=== PATIENT | female | born 1975 | race Caucasian/White ===

== ENCOUNTER 2016-06-20 13:35 | Day surgery (SDC) | payer OTHER ==
[~2016-06-20] VITALS: Ht 152.4 cm; Wt 117.5 kg
[~2016-06-20 13:35] MED LIST: GABA800T2 PO; IBUP400T22 PO; Sodium Chloride LOK Flush 10 mL Syringe IV PRN; fentaNYL-PF 50 mCg/mL 2 mL Inj IVPUSH PRN
[2016-06-20 14:03] VITALS: BP 136/77; PULSE 67; RESP 19; O2SAT 100
[2016-06-20] MEDS ORDERED: LEVO1TBD6 PO (14:11)
[2016-06-20] MEDS ORDERED: NORG1TAB16 PO (14:11)
[2016-06-20] MEDS ORDERED: 0.9% Sodium Chloride 1,000 ML IV ONE (14:31)
[2016-06-20] MEDS ORDERED: 0.9% Sodium Chloride 1,000 ML ONE (14:44)
--- NOTE | 2016-06-20 15:27 | PCM.ENDEGD ---
EGD Date of Service: Jun 20, 2016 Physician Davis Carvajal MD Pre Procedure Diagnosis: Abdominal pain Post Procedure Dx & Findings: Esophagitis Procedure Esophagogastroduodenoscopy PROCEDURE IN DETAIL: After sedation, Olympus video endoscope was inserted patient's mouth and was advanced through the efferent and afferent loops of the small bowel. The Z line was at 35 cm. 2 spot appeared irritated and one spot showed small erosion. These were biopsied using cold forceps. The anastomosis site appeared widely patent without any inflammation ulcers. The stomach remnant appeared normal without any ulcers masses or erosions. Attempted to retroflex but due to the small stomach size, unsuccessful. We advanced to the efferent and afferent loops. The afferenr loop appears to have relatively short blind pouch. Efferent and afferent loops showed a normal villous structures with normal appearing folds. Impression Esophageal inflammation and erosion which were biopsied Recommendation Avoid biopsy report Avoid NSAIDs Follow-up in GI clinic Continue PPI Presedation Assessment Risks and Benefits Informed consent was obtained from the patient after all risks and benefits including but not limited to drug reaction, infection, pain, bleeding, perforation, as well as alternatives were discussed. Patient monitoring Continuous pulse oximetry, cardiac monitoring, blood pressure monitoring, IV access, and oxygen at 2L per nasal cannula. Periprocedural Fentanyl: Fentanyl 150mcg Incrementally Midazolam: Midazolam 7mg Incrementally Diphenhydramine: Diphenhydramine 25 mg IV Complications There were no periprocedural complications identified. Post Procedure Plan Post Procedure Recommendations 1. Restrict activities today. 2. Resume normal activities in the morning. 3. Resume medications. 4. GERD behavioral modification: - Avoid fatty, acidic, spicy, large meals - Do not lie down after meals - Do not eat or drink anything for at least 2 1/2 hours before going to bed at night - Discontinue tobacco and alcohol - Decrease or avoid caffeine - Avoid chocolate and mints - Decrease weight - Avoid aspirin and non steroidal anti-inflammatory agents (NSAID) such as Aleve, Advil, Mobic, Naproxen, Ibuprofen, etc 5. Add proton pump inhibitor. Take 30 minutes before 1st meal of the day. 6. Patient informed of normal post procedure side effects as bloating, drowsiness, blood streaking in the stool 7. If gastric biopsy reveal H.pylori, continue with appropriate treatment 8. If small bowel biopsy reveals celiac, continue with appropriate treatment 9. Please don't hesitate to call me with any questions Davis Carvajal MD Jun 20, 2016 15:27
--- NOTE | 2016-06-20 15:44 | PCM.ENDCOL ---
Colonoscopy Date of Service: Jun 20, 2016 Physician Davis Carvajal MD Pre Procedure Diagnosis: Change in bowel patterns Post Procedure Dx & Findings: Hemorrhoids Procedure Colonoscopy Prep adequate Withdrawal 8 minutes PROCEDURE IN DETAIL: After unremarkable rectal examination Olympus video colonoscope was inserted patient's anal canal and was then stuck cecum. Landmarks are identified including the ileocecal valve and appendiceal orifice. Scope was withdrawn systematically. The mucosa of the cecum, ascending, transverse, descending, sigmoid, rectal mucosa lined with whitish, pink, smooth, glistening, normal-appearing mucosa, normal fine branching, underlying vascularity, normal haustra. The patient tolerated procedure and was transported to observation area. In the rectum retroflexion was done which showed hemorrhoids. Anal canal was inspected carefully the way out and mild hemorrhoids noted. Impression Hemorrhoids Father with colon cancer Recommendation Repeat colonoscopy in 5 years. Presedation Assessment Risks and Benefits Informed consent was obtained from the patient after all risks and benefits including but not limited to drug reaction, infection, pain, bleeding, perforation, as well as alternatives were discussed. Patient monitoring Continuous pulse oximetry, cardiac monitoring, blood pressure monitoring, IV access, and oxygen at 2L per nasal cannula. Periprocedural Fentanyl: Fentanyl 50mcg Incrementally Midazolam: Midazolam 2mg Incrementally Complications There were no periprocedural complications identified. Post Procedure Plan Post Procedure Recommendations 1. Restrict activities today. 2. Resume normal activities in the morning. 3. Resume medications. 4. Patient informed of normal post procedure side effects as bloating, drowsiness, blood streaking in the stool. 5. average risk CRCS. If colon polyps come back as: -Hyperplastic- can repeat colonoscopy in 10 years -Tubular adenoma- repeat colonoscopy in 5 years -Tubulovillous/villous adenoma- repeat colonoscopy in 3 years -If any dysplasia- return to clinic as soon as possible 6. Please don't hesitate to call me with any questions. Davis Carvajal MD Jun 20, 2016 15:44
[2016-06-20 15:50] VITALS: BP 114/63; PULSE 62; RESP 14; O2SAT 100
[2016-06-20 16:10] VITALS: BP 143/75; PULSE 72; RESP 14; O2SAT 100
--- NOTE | 2016-06-24 10:09 | PATH ---
SURGICAL PATHOLOGY Attending Physician:Davis Carvajal M.D. CASE STATUS: Signed Out PATIENT NAME: SJ LANDRUM PID: [id number] : 1975 DATE COLLECTED:06/20/2016 00:00 SPECIMEN: Esophagus, Biopsy CLINICAL HISTORY: GE JUNCTION BIOPSY FINAL DIAGNOSIS: 1.GE JUNCTION BIOPSY: FRAGMENTS OF GASTRIC CARDIA-TYPE MUCOSA, CHRONICALLY INFLAMED WITH REACTIVE EPITHELIAL CHANGES. Negative for specialized metaplasia of Young' s-type esophagus. No squamous mucosa identified. Negative for dysplasia and malignancy. ICD10 code K21.0 GROSS DESCRIPTION: The specimen is received in one formalin filled container labeled with the patient's name, sublabeled "GE junction" and consists of a 0.3 x 0.2 x 0.2 CM portion of tissue which is entirely submitted in one cassette. 06/21/2016 [facility] MICRO DESCRIPTION: See diagnosis. ICD-9 CODES: CPT CODES: 1: 09710 Electronically Signed Out Danielito Daniels MD [facility] [address], [place] [address] Technical component performed at [facility], [facility] [address], [place], [address]
== END 2016-06-20 23:59 | disposition home or self-care (01) ==
LOC: END 13:35
PROVIDERS: ATTEND Internal Medicine
DX: R19.4 Change in bowel habit (principal); K64.9 Unspecified hemorrhoids; K20.9 Esophagitis, unspecified; K22.10 Ulcer of esophagus without bleeding; Z98.84 Bariatric surgery status; K76.0 Fatty (change of) liver, not elsewhere classified
CPT/HCPCS: 43239; 45378; 88305; 99153; G0500; J1200; J2250; J3010; J7030